=== PATIENT | female | born 1950 | race Caucasian/White ===

== ENCOUNTER 2023-02-25 14:27 | Emergency (ER) | payer OTHER ==
[~2023-02-25] VITALS: Ht 160 cm; Wt 68.0 kg
[2023-02-25 14:35] VITALS: BP_SYST 117
--- NOTE | 2023-02-25 14:39 | NUR ---
Placed in room 1 . Placed on hotel administrative assistant, blood pressure machine and pulse oximeter. To gown for exam. Side rails up. Report given to MANPREET MIJARES.
--- NOTE | 2023-02-25 14:40 | NUR ---
PT BIB EMS C/O OF MECHANICAL FALL TODAY AT [facility]. PT WAS GIVEN 4 MG OF MORPHINE BY EMS AND BLOOD PRESSURE LOWERED TO SYSTOLIC 88'S FLUIDS WERE GIVEN PT NEW SYS IS 125/80. PT DENIES LOSING CONSCIOUSNESS, HEADACHE, OR BLURRED VISION. PT IS GCS 15 EYES OPEN SPONTANEOUSLY. PT IS ORIENTED TO PERSON, PLACE, TIME, AND SITUATION. PT OBEYS COMMANDS. 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 PT DENIES AUDITORY PROBLEMS. PT DENIES SOB, CHEST PAIN, N/V/D. PT IS COMPLAING OF RIGHT SHOULDER PAIN 10/10. PT RADIAL PULSE +1 AND CAP REFILL LESS THEN <3. PT DENIES NUMBNESS OR TINGLING. PT HAS A SMALL LACERATION UNDER THE CHIN, AND ON BOTH KNEES. PT HAS A HISTORY OF OSTEOPOROSIS, FIBROMYALGIA, HTN, AND HIGH CHOLESTROL. PT COMPLAINS OF 10/ 10 PAIN MD MADE AWARE NEW ORDERS IN PLACE. PT IN ROOM 1 ON THE MONITOR. PLAN OF CARE CONTINUES.
[2023-02-25] MEDS ORDERED: NACL 0.9% 1,000 ML IV ONE ×2 (14:45→15:45)
[2023-02-25] MEDS ORDERED: MORPHINE 2 MG/ML INJ. SYRINGE IVP ONE (14:45)
--- NOTE | 2023-02-25 14:56 | NUR ---
ER at bedside examining patient.
[2023-02-25] MEDS ORDERED: fentaNYL CITRATE/PF 100 MCG/2 ML AMP IVP ONE ×2 (15:00→16:00)
[2023-02-25] MEDS ORDERED: PROPOFOL 200MG/ 20ML VIAL (DIPRIVAN) IV ONE (15:15)
--- NOTE | 2023-02-25 15:40 | NUR ---
PT CONSENTED FOR PROCEDURAL SEDATION. PT UNABLE TO SIGN DUE TO INJURY. RN SIGNED AND SECOND WITNESSED.
--- NOTE | 2023-02-25 15:42 | NUR ---
DR. HOFFMAN AT BEDSIDE FOR PROCEDURE SEDATION. RT AT BEDSIDE. ER RNS AT [facility].
--- NOTE | 2023-02-25 15:50 | NUR ---
PT VSS POST PROCEDURAL SEDATION RN AT BEDSIDE MONITORING PT.
[2023-02-25] MEDS ORDERED: IBUP-1969 PO (17:31)
[2023-02-25] MEDS ORDERED: HYDR-3927 PO (17:31)
--- NOTE | 2023-02-25 17:36 | NUR ---
RT NOTE BY ALFREDO DUMONT CALLED TO BEDSIDE FOR CONSCIOUS SEDATION AT 1530. PROCEDURE STARTED AT 1540 AND ENDED AT 1547. PT FOUND ON 2 L NC. SATURATION WAS AT 92 AND DECRASING TITRATED FiO2 TO 4L. TO MAINTAIN OXYGENATION DURING PROCEDURE. 10 MIN POST PROCEDURE, TITRATED O2 TO 2L SATURATION AT 94%.
--- NOTE | 2023-02-25 17:49 | NUR ---
Patient given written and verbal discharge instructions and verbalizes understanding. ER MD discussed with patient the results and treatment provided. Patient in stable condition. ID arm band removed. IV catheter removed intact and dressing applied, no active bleeding. Rx of NORCO AND IBUPROFEN given. Patient educated on pain management and to follow up with PMD. Pain Scale 4 OUT 10 . Opportunity for questions provided and answered. Medication side effect fact sheet provided.
[2023-02-25] MEDS ORDERED: OXYC-128 PO (18:32)
[2023-02-25 18:42] VITALS: BP_SYST 111
== END 2023-02-25 18:42 | disposition home or self-care (01) ==
LOC: SED 14:27
DX: S43.014A Anterior dislocation of right humerus, initial encounter (principal); S42.251A Displaced fracture of greater tuberosity of right humerus, initial encounter for closed fracture; I10 Essential (primary) hypertension; Z79.899 Other long term (current) drug therapy; W18.30XA Fall on same level, unspecified, initial encounter; Y93.89 Activity, other specified; Y92.89 Other specified places as the place of occurrence of the external cause; Y99.8 Other external cause status
CPT/HCPCS: 99285; 23650; 96374; 96361; 73030; 96376; 99152; J2704; J3010; J7030